=== PATIENT | male | born 1995 | race Caucasian/White ===

== ENCOUNTER 2022-06-28 08:27 | Emergency (ER) | payer SELFPAY ==
[~2022-06-28] VITALS: Wt 99.8 kg
[2022-06-28] MEDS ORDERED: PROVENTIL HFA6.7 GM INH (10:57)
[2022-06-28] MEDS ORDERED: PREDNISONE50 MG PO (10:57)
[2022-06-28] MEDS ORDERED: ZITHROMAX250 MG PO (10:57)
== END 2022-06-28 11:06 | disposition home or self-care (01) ==
LOC: ED 08:27
DX: J40 Bronchitis, not specified as acute or chronic (principal); Z88.1 Allergy status to other antibiotic agents

== ENCOUNTER 2023-03-28 15:19 | Emergency (ER) | payer OTHER ==
[~2023-03-28] VITALS: Wt 98.1 kg
[~2023-03-28 15:19] MED LIST: PREDNISONE50 MG PO; PROVENTIL HFA6.7 GM INH; ZITHROMAX250 MG PO
[2023-03-28] MEDS ORDERED: VIBRAMYCIN HYC100 MG PO (15:45)
[2023-03-28 15:58] LABS: BASO # 0.1 10*3/uL (0.0-0.1); EOS # 0.2 10*3/uL (0.0-0.4); EOS % 2.4 % (1.0-4.0); HEMATOCRIT 46.5 % (42.0-52.0); LYMPH # 2.5 10*3/uL (1.3-4.4); LYMPH % 26.4 % (27.0-41.0); MEAN CELL VOLUME 88.1 fl (80.0-94.0); MEAN CORPUSCULAR HGB 30.7 pg (27.0-31.0); MEAN CORPUSCULAR HGB CONC 34.8 g/dl (33.0-37.0); MEAN PLATELET VOLUME 10.3 fl (9.6-12.3); MONO # 0.5 10*3/uL (0.1-1.0); MONO % 4.8 % (3.0-9.0); NEUT # 6.1 10*3/uL (2.3-7.9); PLATELET COUNT AUTOMATED 354 10*3/uL (130-400); RED BLOOD COUNT 5.28 10*6/uL (4.50-5.90); RED CELL DISTRI WIDTH 12.2 % (0-14.5); WHITE BLOOD COUNT 9.3 10*3/uL (4.8-10.8)
[2023-03-28 16:19] LABS: ALKALINE PHOSPHATASE 80 U/L (46-116); BUN 9 mg/dl (9-23); CHLORIDE 108 mmol/L (98-107); POTASSIUM 3.7 mmol/L (3.4-5.1); SGPT/ALT 49 U/L (5-49); TOTAL PROTEIN 6.9 gm/dL (6.0-8.0)
[2023-03-28 16:21] LABS: ETHYL ALCOHOL < 3.0 mg/dl (<3)
== END 2023-03-28 17:51 | disposition home or self-care (01) ==
LOC: ED 15:19
PROVIDERS: Family Medicine
DX: R07.89 Other chest pain (principal); K21.9 Gastro-esophageal reflux disease without esophagitis; R00.2 Palpitations; R00.0 Tachycardia, unspecified; R10.13 Epigastric pain; Z88.1 Allergy status to other antibiotic agents; Z79.2 Long term (current) use of antibiotics

== ENCOUNTER 2023-05-10 19:02 | Emergency (ER) | payer OTHER ==
[~2023-05-10] VITALS: Ht 175.2 cm; Wt 102.1 kg
[~2023-05-10 19:02] MED LIST changes: +VIBRAMYCIN HYC100 MG PO
== END 2023-05-10 19:28 | disposition home or self-care (01) ==
LOC: ED 19:02
DX: Z20.2 Contact with and (suspected) exposure to infections with a predominantly sexual mode of transmission (principal); Z88.1 Allergy status to other antibiotic agents

== ENCOUNTER 2023-10-15 09:36 | Emergency (ER) | payer SELFPAY ==
[~2023-10-15] VITALS: Wt 90.7 kg
[2023-10-15] MEDS ORDERED: TRIAMCINOLONE430 GM TD (10:13)
== END 2023-10-15 10:25 | disposition home or self-care (01) ==
LOC: ED 09:36
DX: Z20.828 Contact with and (suspected) exposure to other viral communicable diseases (principal); R21 Rash and other nonspecific skin eruption; Z87.891 Personal history of nicotine dependence; Z88.1 Allergy status to other antibiotic agents

== ENCOUNTER 2025-01-15 09:46 | Emergency (ER) | payer SELFPAY ==
[~2025-01-15] VITALS: Ht 177.8 cm; Wt 95.3 kg
[~2025-01-15 09:46] MED LIST changes: +TRIAMCINOLONE430 GM TD
[2025-01-15] MEDS ORDERED: SODIUM CHLORIDE 0.9% 1,000 ML IV ONE (10:15)
[2025-01-15] MEDS ORDERED: Ondansetron Hydrochloride 4 MG/2 ML VIAL IV ONE (10:15)
[2025-01-15 10:26] LABS: BASO # 0.1 10*3/uL (0.0-0.1); BASO % 0.4 % (0.0-1.0); EOS # 0.2 10*3/uL (0.0-0.4); EOS % 1.2 % (1.0-4.0); MEAN CELL VOLUME 91.7 fl (80.0-94.0); MEAN CORPUSCULAR HGB 31.6 pg (27.0-31.0); MEAN PLATELET VOLUME 10.1 fl (9.6-12.3); MONO # 1.2 10*3/uL (0.1-1.0); MONO % 9.3 % (3.0-9.0); NEUT # 9.7 10*3/uL (2.3-7.9); NEUT % 75.1 % (47.0-73.0); NUCLEATED RED BLOOD CELL 0.0 % (0.0-0.0); NUCLEATED RED BLOOD CELL 0.0 10*3/uL (0.0-0.0); PLATELET COUNT AUTOMATED 306 10*3/uL (130-400); RED CELL DISTRI WIDTH 12.4 % (0-14.5)
[2025-01-15 10:37] LABS: BILIRUBIN Negative (Negative); BLOOD Negative (Negative); CLARITY Clear (Clear); COLOR Yellow (Yellow); KETONE Trace (Negative); LEUKO ESTERASE Negative (Negative); NITRITE Negative (Negative); PH 6.0 (4.5-8.0); SPECIFIC GRAVITY 1.010 (1.001-1.030); UROBILINOGEN 0.2 E.U./dl (0.0-1.0)
[2025-01-15 10:46] LABS: BUN 16 mg/dl (9-23)
[2025-01-15 11:09] LABS: RBC 0-2 rbc/hpf (0-2); WBC 0-2 wbc/hpf (0-5)
[2025-01-15] MEDS ORDERED: PREDNISONE20 M1 PO (13:04)
[2025-01-15] MEDS ORDERED: FLOMAX0.4 MG PO (13:04)
[2025-01-15] MEDS ORDERED: PERCOCET 5-3251 EACH PO (13:04)
[2025-01-15] MEDS ORDERED: Ondansetron4 MG PO (13:04)
[2025-01-15] MEDS ORDERED: Dexamethasone Sodium Phospha 20 MG/5 ML VIAL IV ONE (13:10)
== END 2025-01-15 13:24 | disposition home or self-care (01) ==
LOC: ED 09:46
PROVIDERS: Emergency Medicine
DX: N13.2 Hydronephrosis with renal and ureteral calculous obstruction (principal); L25.9 Unspecified contact dermatitis, unspecified cause; R11.2 Nausea with vomiting, unspecified; Z87.442 Personal history of urinary calculi; Z88.1 Allergy status to other antibiotic agents; Z79.899 Other long term (current) drug therapy

== ENCOUNTER 2025-01-16 20:25 | Emergency (ER) | payer SELFPAY ==
[~2025-01-16] VITALS: Ht 177.8 cm; Wt 97.5 kg
[~2025-01-16 20:25] MED LIST changes: +FLOMAX0.4 MG PO; +Ondansetron4 MG PO; +PERCOCET 5-3251 EACH PO; +PREDNISONE20 M1 PO
[2025-01-16] MEDS ORDERED: Acetaminophen/Hydrocodone HP 10/325 PO ONE (20:50)
== END 2025-01-16 22:09 | disposition home or self-care (01) ==
LOC: ED 20:25
DX: S93.402A Sprain of unspecified ligament of left ankle, initial encounter (principal); Z88.1 Allergy status to other antibiotic agents; Z87.442 Personal history of urinary calculi; V86.99XA Unspecified occupant of other special all-terrain or other off-road motor vehicle injured in nontraffic accident, initial encounter; Y93.89 Activity, other specified; Y92.410 Unspecified street and highway as the place of occurrence of the external cause; Y99.8 Other external cause status

== ENCOUNTER 2025-03-09 10:59 | Emergency (ER) | payer SELFPAY ==
[~2025-03-09] VITALS: Ht 177.8 cm; Wt 97.5 kg
[2025-03-09] MEDS ORDERED: Dexamethasone Sodium Phospha 10 MG/1 ML VIAL IM ONE (11:40)
== END 2025-03-09 11:44 | disposition home or self-care (01) ==
LOC: ED 10:59
DX: T78.40XA Allergy, unspecified, initial encounter (principal); K21.9 Gastro-esophageal reflux disease without esophagitis; Z88.1 Allergy status to other antibiotic agents; Z87.442 Personal history of urinary calculi; Z98.890 Other specified postprocedural states; X58.XXXA Exposure to other specified factors, initial encounter

== ENCOUNTER 2025-04-11 17:00 | Emergency (ER) | payer SELFPAY ==
[~2025-04-11] VITALS: Wt 95.3 kg
== END 2025-04-11 19:00 | disposition home or self-care (01) ==
LOC: ED 17:00
DX: S22.32XA Fracture of one rib, left side, initial encounter for closed fracture (principal); Z88.1 Allergy status to other antibiotic agents; Z98.890 Other specified postprocedural states; Z87.442 Personal history of urinary calculi; V29.99XA Rider (driver) (passenger) of other motorcycle injured in unspecified traffic accident, initial encounter; Y93.89 Activity, other specified; Y92.410 Unspecified street and highway as the place of occurrence of the external cause; Y99.8 Other external cause status